=== PATIENT | female | born 1970 | race Caucasian/White ===

== ENCOUNTER 2020-07-14 08:31 | Outpatient (CLI) | payer OTHER | END 2020-07-14 08:32 | disposition home or self-care (01) | LOC: DTY/OP 08:31 | PROVIDERS: ATTEND Surgery | DX: E66.01 Morbid (severe) obesity due to excess calories (principal) | CPT/HCPCS: 97802 ==

== ENCOUNTER 2020-08-24 09:00 | Inpatient (IN) | payer OTHER ==
[2020-08-25 13:22] VITALS: BMI 36.3
[2020-08-27] MEDS ORDERED: Levofloxacin 500 mg/D5W 100 ml Premix Bag ONE (10:13)
[2020-08-27] MEDS ORDERED: PHENYLEPHRINE-NS 100 MCG/ML 10 ML SYRINGE ONE ×2 (10:26→10:51)
[2020-08-27] MEDS ORDERED: ePHEDrine Sulfate 50 MG/10 ML VIAL ONE (10:26)
[2020-08-27] MEDS ORDERED: Famotidine/PF 20 mg/2ml Vial ONE (10:26)
[2020-08-27] MEDS ORDERED: Metoclopramide HCl 10 MG/2 ML VIAL ONE ×2 (10:26→10:51)
[2020-08-27] MEDS ORDERED: SUGAMMADEX SODIUM 500 MG/5 ML VIAL ONE (10:26)
[2020-08-27] MEDS ORDERED: Fentanyl 100 MCG/2 ML VIAL ONE ×2 (10:26→12:39)
[2020-08-27] MEDS ORDERED: Rocuronium Bromide 10 MG/ML (10ML VIAL) ONE (10:51)
[2020-08-27] MEDS ORDERED: Lidocaine 1% PF 5 ML VIAL ONE (10:51)
[2020-08-27] MEDS ORDERED: Ondansetron PF 4 MG/2 ML Vial ONE (10:51)
[2020-08-27] MEDS ORDERED: Dexamethasone 20 MG/5 ML VIAL ONE (10:51)
[2020-08-27] MEDS ORDERED: Ketorolac Tromethamine 30 MG/ML VIAL ONE (10:51)
[2020-08-27] MEDS ORDERED: PROPOFOL 200 MG/20 ML VIAL ONE (10:51)
[2020-08-27] MEDS ORDERED: Bupivacaine 0.25% HCL 30 ML VIAL ONE (11:03)
[2020-08-27] MEDS ORDERED: Lidocaine 1% w/Epinephrine 1:100K 20 ML VIAL ONE (11:03)
[2020-08-27] MEDS ORDERED: hydrALAZINE 20 MG/ML VIAL SLOW IVP PRN (12:10)
[2020-08-27] MEDS ORDERED: Hydrocodone-Acetamin 15 ML UDCUP PO PRN (12:10)
[2020-08-27] MEDS ORDERED: Dextrose 50% Abboject 50 ML SYRINGE SLOW IVP PRN (12:10)
[2020-08-27] MEDS ORDERED: Promethazine HCl 25 MG/ML VIAL IM PRN ×2 (12:10→12:24)
[2020-08-27] MEDS ORDERED: Dextrose 5% in Water 1,000 ML IV PRN (12:10)
[2020-08-27] MEDS ORDERED: Ondansetron PF 4 MG/2 ML Vial IVP PRN (12:10)
[2020-08-27] MEDS ORDERED: diphenhydrAMINE 50 MG/ML VIAL IVP PRN (12:10)
[2020-08-27] MEDS ORDERED: PACU-Morphine 4MG/ML VIAL SLOW IVP PRN (12:24)
[2020-08-27] MEDS ORDERED: Promethazine HCl 25 MG/ML VIAL SLOW IVP PRN (12:24)
[2020-08-27] MEDS ORDERED: Ondansetron HCl/PF 4 MG/2 ML Vial IVP PRN (12:24)
[2020-08-27] MEDS ORDERED: fentaNYL Citrate/PF 2,000 MCG in Sodium Chloride 0.9% 60 ML IV PRN (12:25)
[2020-08-27] MEDS: D5 1/2 NS w/20 mEq KCL 1,000 ML IV SCH ×2 (14:59→22:21)
[2020-08-27] MEDS: Ketorolac Tromethamine 30 MG/ML VIAL IVP SCH ×2 (17:53→23:28)
[2020-08-27] MEDS: Pantoprazole 40 MG VIAL IVP SCH (18:09)
[2020-08-27] MEDS: Simethicone Chewable 80 MG TAB PO PRN (22:21)
[2020-08-28] MEDS: Simethicone Chewable 80 MG TAB PO PRN (03:46)
[2020-08-28 05:23] LABS: #Lymphocytes 1.2 thou/uL (1.20-3.40); #Monocytes 1.7 thou/uL (0.11-0.59); #Neutrophils 11.8 thou/uL (1.40-6.50); %Basophils 0.1 % (0.0-1.0); %Monocytes 11.3 % (0.0-10.0); %Neutrophils 80.6 % (42.0-75.0); Hemoglobin 14.4 g/dL (12.0-16.0); Mean Corpuscular HGB CONC 33.9 g/dL (32.0-36.0); Mean Corpuscular Hemoglobin 31.8 pg (27.0-31.0); Mean Corpuscular Volume 93.7 fL (78.0-98.0); Mean Platelet Volume 6.9 fL (7.4-10.4); Platelet Count 323 thou/uL (130-400); RBC Distribution Width 11.9 % (11.5-14.5); Red Blood Cell (RBC) Count 4.52 mill/uL (4.20-5.40); White Blood Cell (WBC) Count 14.6 thou/uL (4.8-10.8)
[2020-08-28 05:40] LABS: Anion Gap 11 mmol/L (10-20); BUN (Urea Nitrogen) 12 mg/dL (9.8-20.1); Calc. Creatinine Clearance 85 mL/min (70-130); Calcium 9.1 mg/dL (7.8-10.44); Carbon Dioxide 26 mmol/L (22-29); Chloride 107 mmol/L (98-107); Glucose 139 mg/dL (70-105); Potassium 4.8 mmol/L (3.5-5.1); Sodium 139 mmol/L (136-145)
[2020-08-28] MEDS: Ketorolac Tromethamine 30 MG/ML VIAL IVP SCH ×2 (05:54→12:22)
[2020-08-28] MEDS: D5 1/2 NS w/20 mEq KCL 1,000 ML IV SCH ×2 (06:00→12:23)
[2020-08-28] MEDS ORDERED: Sodium Chloride 0.9% 1,000 ML IV SCH (07:30)
[2020-08-28] MEDS ORDERED: Enoxaparin Sodium 40 MG/0.4 ML SYRINGE SC SCH (09:00)
[2020-08-28] MEDS: Pantoprazole 40 MG VIAL IVP SCH ×2 (09:17→09:30)
[2020-08-28 11:54] VITALS: BP 166/85; TEMP 97.6
== END 2020-08-28 14:32 | disposition home or self-care (01) | DRG 621 ==
LOC: EDSTATUS 08-27 09:00 → SURG A 08-27 09:00 → SJJU 08-27 14:11
PROVIDERS: ADMIT Surgery; ATTEND Surgery
PROC: 0DB64Z3 Excision of Stomach, Percutaneous Endoscopic Approach, Vertical (ICD-10-PCS; principal; 2020-08-27)
PROC: 0DJ08ZZ Inspection of Upper Intestinal Tract, Via Natural or Artificial Opening Endoscopic (ICD-10-PCS; 2020-08-27)
DX: E66.01 Morbid (severe) obesity due to excess calories (principal); Z20.822 Contact with and (suspected) exposure to COVID-19; I10 Essential (primary) hypertension; K21.9 Gastro-esophageal reflux disease without esophagitis; E78.5 Hyperlipidemia, unspecified; R73.03 Prediabetes; Z79.899 Other long term (current) drug therapy; Z90.49 Acquired absence of other specified parts of digestive tract; Z83.3 Family history of diabetes mellitus; Z82.49 Family history of ischemic heart disease and other diseases of the circulatory system; Z88.0 Allergy status to penicillin; Z68.36 Body mass index [BMI] 36.0-36.9, adult; R11.0 Nausea
CPT/HCPCS: 36415; 80048; 85025; 88307; C9113; J0360; J1100; J1650; J1885; J1956; J2405; J2550; J2704; J2765; J3010; J3480; S0020; S0028

== ENCOUNTER 2020-08-25 08:49 | Outpatient (CLI) | payer SELFPAY ==
[2020-08-25 20:37] LABS: SARS-CoV-2 PCR by NAA Not Detected (NotDetected)
== END 2020-08-25 08:50 | disposition home or self-care (01) ==
LOC: LABBT 08:49
PROVIDERS: ATTEND Surgery
DX: Z01.818 Encounter for other preprocedural examination (principal); E66.01 Morbid (severe) obesity due to excess calories
CPT/HCPCS: U0003; U0005